=== PATIENT | male | born 1945 | race Caucasian/White ===

== ENCOUNTER → 2020-02-28 | Outpatient (CLI) | payer MEDICARE, OTHER ==
[~2020-02-28] MED LIST: CHLO25TA3 PO; DONE10TA43 PO; ESCI20TA36 PO; FAMO20TA8 PO; GABA-531 PO; GABA600T10 PO; LISI40TA4 PO; MEMA7CAP2 PO; MV-M1TAB20 PO; OMEG1CAP43 PO; QUIN40TA19 PO; TAMS0.4C32 PO; TRAM50TA4 PO; VITAMIN B 12 PO
== END | disposition home or self-care (01) ==
LOC: RAH 10:50
PROVIDERS: ATTEND Urology
DX: N32.3 Diverticulum of bladder (principal); R33.9 Retention of urine, unspecified
CPT/HCPCS: 76770

== ENCOUNTER 2020-03-06 10:31 | Observation (INO) | payer OTHER ==
[~2020-03-06] VITALS: Ht 185.4 cm; Wt 94.3 kg
[~2020-03-06 10:31] MED LIST changes: -DONE10TA43 PO; -ESCI20TA36 PO; -GABA600T10 PO; -LISI40TA4 PO; -MEMA7CAP2 PO; -MV-M1TAB20 PO
[2020-03-06 12:15] LABS: BASOPHILS % (AUTO) 0.4 % (0.0-5.0); EOSINOPHILS % (AUTO) 1.4 % (0.0-8.0); HEMATOCRIT 27.9 % (42-54); LYMPHOCYTES % (AUTO) 13.4 % (21.0-51.0); MEAN CORPUSCULAR HEMOGLOBIN 30.8 pg (27.0-33.0); MEAN CORPUSCULAR HGB CONC 31.9 g/dL (32.0-36.0); MEAN CORPUSCULAR VOLUME 96.5 fL (79-99); MONOCYTES % (AUTO) 6.6 % (3.0-13.0); NEUTROPHILS % (AUTO) 77.7 % (40.0-77.0); PLATELET COUNT (AUTO) 158 K/uL (130-400); RED BLOOD CELL COUNT(AUTO) 2.89 MIL/uL (4.50-6.20); RED CELL DISTRIBUTION WIDTH 13.2 % (11.0-15.5); WHITE BLOOD COUNT (AUTO) 7.9 K/uL (4.8-10.8)
[2020-03-06 12:26] LABS: INR 0.97 (0.85-1.15); PARTIAL THROMBOPLASTIN TIME 25.8 SEC (26.3-35.5); PROTHROMBIN TIME 10.5 SEC (9.6-11.6)
[2020-03-06 12:36] LABS: ALBUMIN 3.2 g/dL (3.5-5.0); BILIRUBIN,TOTAL 0.3 mg/dL (0.2-1.0); CREATININE 1.7 mg/dL (0.5-1.5); POTASSIUM 5.2 mmol/L (3.5-5.1); TOTAL PROTEIN, SERUM 5.7 g/dL (6.0-8.3)
[2020-03-06 17:59] LABS: HEMATOCRIT 28.9 % (42-54)
[2020-03-06] MEDS ORDERED: ACETAMINOPHEN 325 MG TAB PO PRN ×2 (19:00)
[2020-03-06] MEDS ORDERED: ONDANSETRON HCL 4 MG/2 ML VIAL IV PRN (19:00)
[2020-03-06] MEDS ORDERED: HYDRALAZINE HCL 20 MG/ML VIAL IV PRN (19:00)
[2020-03-06] MEDS ORDERED: LACTULOSE 20 GM/30 ML UDCUP PO PRN (19:00)
[2020-03-06 20:40] VITALS: BP 114/68
[2020-03-06] MEDS: FERROUS SULFATE 325 MG TABLET.DR PO SCH (20:52)
[2020-03-06] MEDS ORDERED: DONE10TA43 PO (20:54)
[2020-03-06] MEDS ORDERED: MEMA7CAP2 PO (20:56)
[2020-03-06] MEDS ORDERED: MORPHINE SULFATE 2 MG/ML 1ML SYG ONE (21:00)
[2020-03-06] MEDS ORDERED: LISI40TA4 PO (21:06)
[2020-03-06] MEDS ORDERED: ESCI20TA36 PO (21:06)
[2020-03-06] MEDS ORDERED: MV-M1TAB20 PO (21:08)
--- NOTE | 2020-03-06 21:12 | NUR ---
HOME MEDS SPENT SOME TIME SPEAKING TO SPOUSE MYRA REGARDING HOME MEDICATIONS. UPDATED LIST. WILL CONTACT ONCALL HOSPITALIST TO REVIEW.
--- NOTE | 2020-03-06 21:15 | NUR ---
HOMEMEDS SPOKE TO MAYA FERNANDEZ CIRCULATION WORKER TO REVIEW HOME MEDICATIONS.
[2020-03-06] MEDS: MORPHINE SULFATE 2 MG/ML 1ML SYG IV PRN (21:25)
[2020-03-07] VITALS: BP 130/63
[2020-03-07 04:00] VITALS: BP 120/66
[2020-03-07 05:43] LABS: BASOPHILS % (AUTO) 0.3 % (0.0-5.0); EOSINOPHILS % (AUTO) 0.8 % (0.0-8.0); HEMATOCRIT 28.5 % (42-54); LYMPHOCYTES % (AUTO) 13.9 % (21.0-51.0); MEAN CORPUSCULAR HEMOGLOBIN 31.4 pg (27.0-33.0); MEAN CORPUSCULAR HGB CONC 32.6 g/dL (32.0-36.0); MEAN CORPUSCULAR VOLUME 96.3 fL (79-99); MONOCYTES % (AUTO) 7.1 % (3.0-13.0); NEUTROPHILS % (AUTO) 77.4 % (40.0-77.0); PLATELET COUNT (AUTO) 168 K/uL (130-400); RED BLOOD CELL COUNT(AUTO) 2.96 MIL/uL (4.50-6.20); WHITE BLOOD COUNT (AUTO) 8.8 K/uL (4.8-10.8)
[2020-03-07 06:10] LABS: CREATININE 1.4 mg/dL (0.5-1.5); POTASSIUM 4.6 mmol/L (3.5-5.1)
[2020-03-07] MEDS ORDERED: MORPHINE SULFATE 2 MG/ML 1ML SYG ONE (06:30)
[2020-03-07] MEDS: MORPHINE SULFATE 2 MG/ML 1ML SYG IV PRN (06:46)
[2020-03-07] MEDS ORDERED: GABAPENTIN 300 MG CAPSULE ONE (08:37)
[2020-03-07] MEDS ORDERED: MEMANTINE HCL 5 MG TABLET ONE (08:38)
[2020-03-07] MEDS ORDERED: TRAMADOL HCL 50 MG TABLET ONE (08:39)
[2020-03-07] MEDS: FERROUS SULFATE 325 MG TABLET.DR PO SCH (09:00)
--- NOTE | 2020-03-07 10:12 | NUR ---
CHART CHECK COMPLETED. Pt IS A 74 Y.O. MALE ADMITTED SECONDARY TO S/P FALL, 11TH RIB FX, ACUTE RENAL FAILURE. Pt HAS A PAST MEDICAL HISTORY SIGNIFICANT FOR HYPERTENSION, BPH, FIBROMYALGIA, STENT, FATTY TUMOR REMOVAL, INGUINAL PERINEORRHAPHY. Pt CURRENTLY ON REGULAR TEXTURE, THIN LIQUIDS DIET. INITIAL CHART CHECK REVIEW COMPLETED. SKILLED SPEECH THERAPY IS NOT WARRANTED AT THIS TIME. Addendum: 03/07/20 at 1017 by MAGDALENA BERNARDO, [facility] Amended: Links added.
[2020-03-07 11:15] LABS: HEMATOCRIT 27.2 % (42-54)
--- NOTE | 2020-03-07 11:30 | NUR ---
SPOKE TO SPOUSE STEPHANIE FOR [place] [employer] STATES PATIENT IS ACTIVE AND AMBULATORY, SELF CARE, NO DME, DOES NOT DRIVE, ENJOYS SPENDING TIME OUTSIDE WORKING IN THE SUN /YARD. HOME: 4 STEPS UP TO HOUSE, SHOWER CHAIR/WALKER/CANE/COMMODE AVAILABLE IF NEEDED. NO PROVIDER OR SERVICES. SPOUSE STATES THAT PATIENT'S WEAKNESS & FALLS X2 HAVE JUST BEEN < 2 WEEKS, SINCE PT NOTICED DARK STOOLS, HAS GI CONSULT PENDING, PCP TO SET UP, DR. WALLACE HAD TELE MED SESSION WITH PT LAST WEEK. [facility] CM TO FOLLOW Addendum: 03/07/20 at 1135 by KATYT FISHER RN CM Amended: Links added.
[2020-03-07 11:48] VITALS: BP 133/69
[2020-03-07] MEDS ORDERED: GABA600T10 PO (14:32)
[2020-03-07] MEDS ORDERED: SODIUM CHLORIDE 0.9% 1000ML 1,000 ML IV SCH (15:45)
[2020-03-07 16:30] LABS: HEMATOCRIT 28.5 % (42-54)
[2020-03-07 16:50] VITALS: BP 126/59
--- NOTE | 2020-03-07 18:30 | NUR ---
Discharge orders in chart. Pt is confused, hx Alzheimer's. Discharge instructions given via telephone to Neva Ferrell. Emphasis on dx falls, rib fx, and s/s to monitor for, including when to seek emergency care/dial 911. understands she must call to schedule follow up appts with Dr. Ross to be seen in 2-3 days, and Dr. Braun, to be seen in 2 weeks. No new rx. PIV and telemetry pack removed by primary nurse MARLI Otero. now downstairs, pt wheeled to [facility] for transport home via private car. Pt in stable condition at time of discharge.
== END 2020-03-07 18:40 | disposition home or self-care (01) ==
LOC: EDH 10:31 → EDHIP 18:48 → 3AH 03-07 09:40
PROVIDERS: ADMIT Hospitalist; ATTEND Hospitalist
DX: S22.32XA Fracture of one rib, left side, initial encounter for closed fracture (principal); N17.9 Acute kidney failure, unspecified; R42 Dizziness and giddiness; I12.9 Hypertensive chronic kidney disease with stage 1 through stage 4 chronic kidney disease, or unspecified chronic kidney disease; N18.9 Chronic kidney disease, unspecified; K92.1 Melena; D64.9 Anemia, unspecified; I99.9 Unspecified disorder of circulatory system; E87.5 Hyperkalemia; N40.0 Benign prostatic hyperplasia without lower urinary tract symptoms; M79.7 Fibromyalgia; Z95.828 Presence of other vascular implants and grafts; Z87.891 Personal history of nicotine dependence; Z79.899 Other long term (current) drug therapy; Z88.8 Allergy status to other drugs, medicaments and biological substances; W01.0XXA Fall on same level from slipping, tripping and stumbling without subsequent striking against object, initial encounter; Y93.89 Activity, other specified; Y92.000 Kitchen of unspecified non-institutional (private) residence as the place of occurrence of the external cause
CPT/HCPCS: 36415 ×2; 71250; 74176; 80048; 80053; 82550; 84484; 85014 ×3; 85018 ×3; 85025 ×2; 85610; 85730; 93005; 96361; 96374; 96376; 99291; G0378 ×24; J7030

== ENCOUNTER 2020-09-20 10:31 | Observation (INO) | payer OTHER ==
[~2020-09-20 10:31] MED LIST changes: -CHLO25TA3 PO; +DONE10TA43 PO; +ESCI20TA54 PO; -GABA-531 PO; +GABA600T10 PO; +LISI40TA4 PO; +MEMA7CAP2 PO; +MV-M1TAB20 PO; -QUIN40TA19 PO; -TAMS0.4C32 PO
[2020-09-20 11:17] LABS: BASOPHILS % (AUTO) 0.3 % (0.0-5.0); HEMATOCRIT 42.3 % (42-54); LYMPHOCYTES % (AUTO) 15.1 % (21.0-51.0); MEAN CORPUSCULAR HEMOGLOBIN 30.3 pg (27.0-33.0); MEAN CORPUSCULAR HGB CONC 31.9 g/dL (32.0-36.0); MEAN CORPUSCULAR VOLUME 94.8 fL (79-99); MONOCYTES % (AUTO) 15.1 % (3.0-13.0); PLATELET COUNT (AUTO) 116 K/uL (130-400); RED BLOOD CELL COUNT(AUTO) 4.46 MIL/uL (4.50-6.20); WHITE BLOOD COUNT (AUTO) 3.9 K/uL (4.8-10.8)
[2020-09-20 11:37] LABS: ALBUMIN 3.4 g/dL (3.5-5.0); BILIRUBIN,TOTAL 0.8 mg/dL (0.2-1.0); CREATININE 1.5 mg/dL (0.5-1.5); POTASSIUM 4.4 mmol/L (3.5-5.1)
[2020-09-20] MEDS ORDERED: DEXAMETHASONE SOD PHOSPHATE 10MG/ML 1ML VIAL ONE (12:14)
[2020-09-20 12:40] LABS: ABG BASE EXCESS 0.2 mmol/L (-2.0-3.0); ABG HCO3 25.3 mmol/L (21.0-28.0); ABG OXYGEN SATURATION 92.7 % (95.0-99.0); ABG PCO2 42 mmHg (35-48)
[2020-09-20 13:09] LABS: CRP QUANTITATIVE 25.4 mg/L (0.00-9.0); MAGNESIUM 1.9 mg/dL (1.80-2.40)
[2020-09-20] MEDS ORDERED: CEFTRIAXONE SODIUM 1 GM IVP SCH (13:30)
[2020-09-20] MEDS ORDERED: TRAMADOL HCL 50 MG TABLET PO PRN (13:45)
[2020-09-20] MEDS ORDERED: GABAPENTIN 300 MG CAPSULE PO SCH (14:00)
[2020-09-20] MEDS ORDERED: CEFTRIAXONE SODIUM 1 GM ONE (14:11)
[2020-09-20] MEDS ORDERED: ENOXAPARIN SODIUM 40 MG/0.4 ML SYRINGE SQ ONE (14:11)
[2020-09-20] MEDS ORDERED: GABAPENTIN 300 MG CAPSULE ONE (14:12)
[2020-09-20] MEDS ORDERED: LOPERAMIDE HCL 2 MG CAP PO ONE (15:41)
[2020-09-20] MEDS ORDERED: LOPERAMIDE HCL 2 MG CAP PO PRN (15:45)
[2020-09-20] MEDS ORDERED: ENOXAPARIN SODIUM 40 MG/0.4 ML SYRINGE SQ SCH (16:00)
[2020-09-20] MEDS ORDERED: APIX2.5T PO (16:45)
[2020-09-20] MEDS ORDERED: PANT40TA55 PO (16:45)
[2020-09-20] MEDS ORDERED: DOXYCYCLINE HYCLATE 100 MG TABLET PO SCH (21:00)
[2020-09-21] MEDS ORDERED: DEXAMETHASONE SOD PHOSPHATE 4 MG/ML 1ML VIAL IVP SCH (09:00)
[2020-09-21] MEDS ORDERED: ASCORBIC ACID 500 MG TAB PO SCH (09:00)
[2020-09-21] MEDS ORDERED: FAMOTIDINE 20MG TAB 20 MG TAB PO SCH (09:00)
[2020-09-21] MEDS ORDERED: ZINC SULFATE 220 CAPSULE PO SCH (09:00)
[2020-09-21] MEDS ORDERED: ENOXAPARIN SODIUM 40 MG/0.4 ML SYRINGE SQ SCH (16:00)
== END 2020-09-20 17:21 | disposition home or self-care (01) ==
LOC: EDH 10:31 → EDHIP 12:48
PROVIDERS: ADMIT Internal Medicine; ATTEND Internal Medicine
DX: U07.1 COVID-19 (principal); J12.82 Pneumonia due to coronavirus disease 2019; G30.9 Alzheimer's disease, unspecified; F02.80 Dementia in other diseases classified elsewhere, unspecified severity, without behavioral disturbance, psychotic disturbance, mood disturbance, and anxiety; G89.29 Other chronic pain; M54.9 Dorsalgia, unspecified; G62.9 Polyneuropathy, unspecified; I10 Essential (primary) hypertension; Z87.891 Personal history of nicotine dependence; Z87.09 Personal history of other diseases of the respiratory system; Z79.899 Other long term (current) drug therapy; Z88.8 Allergy status to other drugs, medicaments and biological substances
CPT/HCPCS: 36600; 71045; 82550; 82728; 82803; 83615; 83735; 84145; 85378; 86140; 86850; 86900; 86901; 87426; 93005; 93970; 99285; G0378 ×4; J0696; J1100; J1650

== ENCOUNTER 2020-09-29 09:20 | Emergency (ER) | payer OTHER ==
[~2020-09-29 09:20] MED LIST changes: +APIX2.5T PO; +PANT40TA55 PO
[2020-09-29 10:50] LABS: BASOPHILS % (AUTO) 0.5 % (0.0-5.0); EOSINOPHILS % (AUTO) 3.6 % (0.0-8.0); HEMATOCRIT 40.2 % (42-54); LYMPHOCYTES % (AUTO) 16.4 % (21.0-51.0); MEAN CORPUSCULAR HEMOGLOBIN 30.6 pg (27.0-33.0); MEAN CORPUSCULAR HGB CONC 32.3 g/dL (32.0-36.0); MEAN CORPUSCULAR VOLUME 94.6 fL (79-99); MONOCYTES % (AUTO) 7.6 % (3.0-13.0); NEUTROPHILS % (AUTO) 71.5 % (40.0-77.0); PLATELET COUNT (AUTO) 226 K/uL (130-400); RED BLOOD CELL COUNT(AUTO) 4.25 MIL/uL (4.50-6.20); RED CELL DISTRIBUTION WIDTH 12.3 % (11.0-15.5); WHITE BLOOD COUNT (AUTO) 5.5 K/uL (4.8-10.8)
[2020-09-29 10:56] LABS: INR 1.03 (0.85-1.15); PROTHROMBIN TIME 11.2 SEC (9.6-11.6)
[2020-09-29 10:57] LABS: PARTIAL THROMBOPLASTIN TIME 28.8 SEC (26.3-35.5)
[2020-09-29 11:02] LABS: CREATININE 1.4 mg/dL (0.5-1.5); POTASSIUM 4.9 mmol/L (3.5-5.1)
== END 2020-09-29 13:22 | disposition home or self-care (01) ==
LOC: EDH 09:20
DX: R04.0 Epistaxis (principal); I10 Essential (primary) hypertension; Z86.16 Personal history of COVID-19; Z88.8 Allergy status to other drugs, medicaments and biological substances; Z79.01 Long term (current) use of anticoagulants
CPT/HCPCS: 36415; 71045; 80048; 85025; 85610; 85730

== ENCOUNTER 2021-10-06 22:43 | Emergency (ER) | payer OTHER ==
[~2021-10-06] VITALS: Ht 185.4 cm; Wt 95.5 kg
[~2021-10-06 22:43] MED LIST changes: +ESCI20TA38 PO; -ESCI20TA54 PO; -LISI40TA4 PO; +LISI40TA9 PO
[2021-10-06 23:47] LABS: APPEARANCE,URINE Turbid (CLEAR); BILIRUBIN,URINE Negative (NEGATIVE); COLOR,URINE Yellow (YELLOW); GLUCOSE, URINE (UA) Negative (NEGATIVE); KETONES,URINE Negative (NEGATIVE); LEUKOCYTE ESTERASE ,URINE Large (NEGATIVE); NITRATE,URINE Negative (NEGATIVE); OCCULT BLOOD,URINE Small (NEGATIVE); PROTEIN,URINE Trace mg/dL (NEGATIVE)
[2021-10-07] VITALS: BP 140/86
[2021-10-07] LABS: WBC,URINE TNTC /HPF (0-1)
[2021-10-07 00:01] LABS: BACTERIA,URINE Rare /HPF (None Seen); SQUAMOUS EPITHELIAL CELL,UR Few /HPF (0-2)
[2021-10-07] MEDS ORDERED: CEFTRIAXONE 1G VIAL ONE (01:28)
[2021-10-07] MEDS ORDERED: LIDOCAINE HCL-MPF 1% 2ML VIAL ONE (01:28)
[2021-10-07] MEDS ORDERED: CEFTRIAXONE 1G VIAL IM ONE ×2 (01:30)
[2021-10-07] MEDS ORDERED: CEPH500T PO (01:31)
== END 2021-10-07 01:38 | disposition home or self-care (01) ==
LOC: EDH 22:43
DX: N39.0 Urinary tract infection, site not specified (principal); G30.9 Alzheimer's disease, unspecified; F02.80 Dementia in other diseases classified elsewhere, unspecified severity, without behavioral disturbance, psychotic disturbance, mood disturbance, and anxiety; E78.00 Pure hypercholesterolemia, unspecified; I10 Essential (primary) hypertension; J44.9 Chronic obstructive pulmonary disease, unspecified; Z88.1 Allergy status to other antibiotic agents; Z88.8 Allergy status to other drugs, medicaments and biological substances; Z79.899 Other long term (current) drug therapy; Z79.01 Long term (current) use of anticoagulants
CPT/HCPCS: 81001; 87088; 96372; 99283; J0696; J3490

== ENCOUNTER 2021-10-15 20:06 | Emergency (ER) | payer OTHER ==
[~2021-10-15] VITALS: Ht 182.9 cm; Wt 95.7 kg
[~2021-10-15 20:06] MED LIST changes: +CEPH500T PO
[2021-10-15 20:08] VITALS: BP 110/81
[2021-10-15] MEDS ORDERED: LIDOCAINE HCL 1% 20 ML VIAL INJ SCH (22:00)
[2021-10-15] MEDS ORDERED: LIDOCAINE HCL MPF 1% 5ML VIAL ONE (22:15)
[2021-10-15] MEDS ORDERED: AMOX1TAB16 PO (23:44)
[2021-10-15] MEDS ORDERED: ACET-66 PO (23:44)
[2021-10-15] MEDS ORDERED: AMOX/CLAV 875/125MG TAB PO ONE (23:44)
[2021-10-15] MEDS ORDERED: BACI30OI6 TP (23:46)
[2021-10-16] MEDS ORDERED: AMOX/CLAV 875/125MG TAB PO ONE
== END 2021-10-15 23:54 | disposition home or self-care (01) ==
LOC: EDH 20:06
DX: S61.412A Laceration without foreign body of left hand, initial encounter (principal); S61.411A Laceration without foreign body of right hand, initial encounter; S61.512A Laceration without foreign body of left wrist, initial encounter; I10 Essential (primary) hypertension; E78.00 Pure hypercholesterolemia, unspecified; Z98.890 Other specified postprocedural states; Z88.8 Allergy status to other drugs, medicaments and biological substances; Z79.899 Other long term (current) drug therapy; W54.0XXA Bitten by dog, initial encounter; Y93.89 Activity, other specified; Y92.89 Other specified places as the place of occurrence of the external cause; Y99.8 Other external cause status
CPT/HCPCS: 12005; 73120; 99283; J3490